=== PATIENT | female | born 2000 | race African-American/Black ===

== ENCOUNTER 2022-08-15 21:01 | Inpatient (IN) ==
[2022-08-15] MEDS ORDERED: miSOPROStoL 200 MCG TABLET RECTAL PRN (21:51)
[2022-08-15] MEDS ORDERED: CARBOPROST TROMETHAMINE 250 MCG/ML AMP IM PRN (21:51)
[2022-08-15] MEDS ORDERED: OXYTOCIN/LR 20 UNIT/1,000 ML BAG IV ONE (21:51)
[2022-08-15] MEDS ORDERED: BUTORPHANOL 2 MG/ML VIAL IV PRN (21:51)
[2022-08-15] MEDS ORDERED: METHYLERGONOVINE 0.2 MG/1 ML AMP IM PRN (21:51)
[2022-08-15] MEDS ORDERED: MEPERIDINE 50 MG/1 ML VIAL IV PRN (21:51)
[2022-08-15] MEDS ORDERED: ONDANSETRON 4 MG/2 ML VIAL IV PRN (21:51)
[2022-08-15] MEDS ORDERED: TRANEXAMIC ACID 1,000 MG in SODIUM CHLORIDE 0.9% 100 ML IV PRN (21:51)
[2022-08-15] MEDS ORDERED: LACTATED RINGERS 1,000 ML IV SCH (22:00)
[2022-08-15 22:43] LABS: Basophils % 0.1 % (0.0-0.8); Eosinophils % 0.3 % (0.00-10.9); Hematocrit 35.6 VOL% (35.7-47.0); Hemoglobin 10.7 GM/DL (12.0-16.0); Immature Granulocytes % 1.1 %; Lymphocytes # 1.5 10*3/uL (1.4-4.0); Mean Corpuscular HGB Conc 30.1 GM/DL (32-36); Mean Corpuscular Volume 72.4 FL (87-102); Mean Platelet Volume 11.8 FL (9.6-12.0); Monocytes # 0.7 10*3/uL (0.11-0.8); Monocytes % 8.1 % (1.7-12.7); NRBC # 0.02 10*3/uL; Neutrophils % 74.4 % (38.7-73.9); Platelet Count 184 T/CUMM (130-400); Red Blood Count 4.92 MC/CUMM (3.8-5.5); Red Cell Distribution Width 17.1 % (9.3-17.3); White Blood Count 9.1 T/CUMM (4-12)
[2022-08-15 22:56] LABS: INR 0.8; PT Patient Result 9.3 SECS (10.1-12.1); Partial Thromboplastin Time 26.5 SECS (23.7-32.9)
[2022-08-15 23:20] LABS: Bilirubin,Direct 0.11 MG/DL (0.0-0.20); Bilirubin,Total 0.4 MG/DL (0.20-1.00); Calcium 9.3 MG/DL (8.5-10.1); Osmolality,Calculated 270.7 MOS/KG (273-304); Potassium 3.7 MMOL/L (3.5-5.1); Total Protein 7.8 G/DL (6.4-8.2); Uric Acid 4.7 MG/DL (2.6-6.0)
[2022-08-15 23:21] LABS: Bacteria,Urine Occasional /HPF (Few); Mucus,Urine Occasional /LPF (Occasional); RBC,Urine 2 /HPF (0-4); Squamous Epithelial Cell,Urine Occasional /HPF (0-10); Urine Appearance Clear (Clear); Urine Color Yellow (Yellow)
[2022-08-15 23:22] LABS: Bilirubin,Urine Negative (Negative); Blood, Urine Trace mg/dL (Negative); Glucose,Urine (UA) Negative (Negative); Ketones,Urine Negative (Negative); Nitrite,Urine Negative (Negative); Protein,Urine 30 mg/dL (Negative); Urine Urobilinogen 0.2 eU/dL (<2.0)
[2022-08-16 01:01] LABS: Protein/Creatinine Ratio,Urine 0.3 RATIO
[2022-08-16] MEDS ORDERED: diphenhydrAMINE 50 MG/1 ML VIAL IV PRN ×2 (08:10)
[2022-08-16] MEDS ORDERED: PROMETHAZINE 25 MG/1 ML VIAL IM ONE (08:10)
[2022-08-16] MEDS ORDERED: CITRIC ACID/SODIUM CITRATE 30 ML UDCUP PO ONE (08:10)
[2022-08-16] MEDS ORDERED: hydrOXYzine HCL 25 MG/1 ML VIAL IM PRN (08:10)
[2022-08-16] MEDS ORDERED: LACTATED RINGERS 1,000 ML IV ONE (08:10)
[2022-08-16] MEDS ORDERED: ePHEDrine 50 MG/ML VIAL IV PRN (08:10)
[2022-08-16] MEDS ORDERED: FAMOTIDINE 20 MG/2 ML VIAL IV ONE (08:10)
[2022-08-16] MEDS ORDERED: NALOXONE 0.4 MG/ML VIAL IV PRN (08:10)
[2022-08-16] MEDS ORDERED: fentaNYL 2 MCG/ROPIV 0.2% EPID 100 ML EPIDURAL SCH (08:30)
[2022-08-16] MEDS ORDERED: OXYTOCIN/LR 20 UNIT/1,000 ML BAG IV SCH (08:30)
[2022-08-16 10:34] LABS: RBC,Urine 1 /HPF (0-4); Urine Appearance Clear (Clear); Urine Color Yellow (Yellow); Urine pH 6.5 (4.5-8.0)
[2022-08-16 10:35] LABS: Bilirubin,Urine Negative (Negative); Blood, Urine Negative (Negative); Glucose,Urine (UA) Negative (Negative); Ketones,Urine 40 mg/dL (Negative); Nitrite,Urine Negative (Negative); Protein,Urine 30 mg/dL (Negative); Urine Specific Gravity 1.025 (1.001-1.035); Urine Urobilinogen 0.2 eU/dL (<2.0)
[2022-08-16 11:17] LABS: Cord Arterial Blood HCO3 17.9 MMOL/L
[2022-08-16 11:20] LABS: Cord Venous Blood HCO3 19.1 MMOL/L; Cord Venous Blood PCO2 44.2 MMHG; Cord Venous Blood PO2 33.4
[2022-08-16] MEDS ORDERED: DIPH/TET/ACEL PERT BOOSTER VACCINE 0.5 ML VIAL IM ONE (12:52)
[2022-08-16] MEDS ORDERED: BISACODYL 10 MG SUPP RECTAL PRN (12:52)
[2022-08-16] MEDS ORDERED: MEASLES/MUMPS/RUBELLA VACCINE 0.5 ML VIAL SUBCUT ONE (12:52)
[2022-08-16] MEDS ORDERED: oxyCODONE/ACETAMINOPHEN 5-325 MG TABLET PO PRN (12:52)
[2022-08-16] MEDS ORDERED: ACETAMINOPHEN 325 MG TABLET PO PRN (12:52)
[2022-08-16] MEDS ORDERED: LANOLIN 50% CREAM 0.3 OZ TUBE TOP PRN (12:52)
[2022-08-16] MEDS ORDERED: HYDROCORTISONE 2.5% RECTAL CREAM 30 GM TUBE TOP PRN (12:52)
[2022-08-16] MEDS ORDERED: OXYTOCIN/LR 20 UNIT/1,000 ML BAG IV ONE (12:52)
[2022-08-16] MEDS ORDERED: ONDANSETRON 4 MG/2 ML VIAL IV PRN (12:52)
[2022-08-16] MEDS ORDERED: RHO(D) IMMUNE GLOBULIN 300 MCG SYRINGE IM ONE (12:52)
[2022-08-16] MEDS ORDERED: BENZOCAINE 20%/MENTHOL 0.5% SPRAY 56 GM CAN TOP PRN (12:52)
[2022-08-16] MEDS: oxyCODONE/ACETAMINOPHEN 5-325 MG TABLET PO PRN ×2 (14:16→20:14)
[2022-08-16] MEDS: DOCUSATE SODIUM 100 MG CAPSULE PO SCH (20:13)
[2022-08-17] MEDS: WITCH HAZEL PADS 100/JAR TOP PRN ×2 (00:22→22:32)
[2022-08-17] MEDS: IBUPROFEN 800 MG TABLET PO PRN ×3 (00:22→22:32)
[2022-08-17 06:01] LABS: Basophils % 0.2 % (0.0-0.8); Eosinophils % 0.3 % (0.00-10.9); Hematocrit 27.3 VOL% (35.7-47.0); Hemoglobin 8.2 GM/DL (12.0-16.0); Immature Granulocytes % 0.8 %; Immature Granulocytes Absolute 0.09 #; Lymphocytes # 1.6 10*3/uL (1.4-4.0); Lymphocytes % 14.4 % (21.3-54.2); Mean Platelet Volume 11.2 FL (9.6-12.0); Monocytes % 9.6 % (1.7-12.7); Neutrophils % 74.7 % (38.7-73.9); Platelet Count 158 T/CUMM (130-400); Red Blood Count 3.79 MC/CUMM (3.8-5.5); Red Cell Distribution Width 16.9 % (9.3-17.3); White Blood Count 10.8 T/CUMM (4-12)
[2022-08-17 06:19] LABS: Hypochromia 1+; Microcytosis 1+
[2022-08-17 06:20] LABS: Ovalocytes Slight; Platelet Estimate Adequate; Tear Drop Cells Slight
[2022-08-17] MEDS: DOCUSATE SODIUM 100 MG CAPSULE PO SCH ×2 (10:18→20:56)
[2022-08-17] MEDS: oxyCODONE/ACETAMINOPHEN 5-325 MG TABLET PO PRN ×2 (10:22→15:19)
[2022-08-18 07:26] VITALS: BP 134/61
[2022-08-18] MEDS: IBUPROFEN 800 MG TABLET PO PRN (08:14)
[2022-08-18] MEDS: oxyCODONE/ACETAMINOPHEN 5-325 MG TABLET PO PRN (08:59)
[2022-08-18] MEDS: DOCUSATE SODIUM 100 MG CAPSULE PO SCH (11:11)
== END 2022-08-18 11:50 | disposition home or self-care (01) | DRG 560 ==
LOC: N.LDOUT 21:01 → N.LD 21:03 → N.OB 08-16 12:20
PROVIDERS: ADMIT Specialist; ATTEND Specialist